=== PATIENT | female | born 2000 | race Caucasian/White ===

== ENCOUNTER 2019-12-02 18:46 | Emergency (ER) | payer OTHER ==
[~2019-12-02] VITALS: Ht 162.5 cm; Wt 63.5 kg
[2019-12-02] MEDS ORDERED: TETANUS,DIPTH,PERTUSS P/F (BOOSTRIX) 0.5 ML VIAL IM ONE (19:30)
--- NOTE | 2019-12-02 19:37 | ED Upper Extremity ---
General Chief Complaint: Upper Extremity Stated Complaint: R THUMB SWOLLEN History of Present Illness Date Seen by Provider: Dec 02, 2019 Time Seen by Provider: 19:20 Initial Comments 19-year-old female presents for right thumb swelling and abrasion. She works at [employer]. She was picking up a feeding and in the dark, the guard came off causing her to be in size by the blade. She had a small laceration and swelling and was referred here. She denies any previous histories of injuries to her right hand she is right-hand dominant. Unsure of her last tetanus immunization. Onset: just prior to arrival Pain/Injury Location: right thumb Method of Injury: incised Modifying Factors: Improves With Rest Allergies and Home Medications Allergies Coded Allergies: No Known Drug Allergies (Unverified , 12/02/19) Patient Home Medication List Home Medication List Reviewed: Yes Review of Systems Constitutional: no symptoms reported, see HPI : No Control/STD Prophylaxis: BC Patch Skin: see HPI, other (abrasion right thumb) All Other Systems Reviewed Negative Unless Noted: Yes Past Jqbsafl-Wzcaqm-Ktxtca Hx Past Med/Social Hx: Reviewed Nursing Past Med/Soc Hx Patient Social History Recent Foreign Travel: No Contact w/Someone Who Travel: No Physical Exam Vital Signs Vital Signs - First Documented 12/02/19 19:32 Temp 36.5 Pulse 76 Resp 16 B/P (MAP) 109/69 (82) Pulse Ox 100 O2 Delivery Room Air Capillary Refill : Height, Weight, BMI Height: '" Weight: lbs. oz. kg; BMI Method: General Appearance: WD/WN, no apparent distress Cardiovascular: normal peripheral pulses, regular rate, rhythm Respiratory: chest non-tender, lungs clear, normal breath sounds Hand: normal ROM, Right, laceration (abrasian at cuticle, no active bleeding, 1 cm), soft tissue tenderness Neurologic/Tendon: normal sensation, normal motor functions, normal tendon functions (flex/ext V/V) Neurologic/Psychiatric: no motor/sensory deficits, alert, normal mood/affect, oriented x 3 Skin: normal color, warm/dry Progress/Results/Core Measures Results/Orders My Orders Orders - NILSA OATESP Finger(S) (12/02/19 19:29) Dipht,Pertuss(Acell),Tet Adult (Boostrix (12/02/19 19:30) Medications Given in ED Current Medications Medications Dose Ordered Sig/Ignacio Route Start Time Stop Time Status Last Admin Dose Admin Diphtheria/ Tetanus/Acell Pertussis 0.5 ml ONCE ONCE IM 12/02/19 19:30 12/02/19 19:31 DC 12/02/19 20:03 0.5 ML Vital Signs/I&O 12/02/19 19:32 Temp 36.5 Pulse 76 Resp 16 B/P (MAP) 109/69 (82) Pulse Ox 100 O2 Delivery Room Air Diagnostic Imaging Diagonstic Imaging: Xray Plain Films/CT/US/NM/MRI: other (thumb) Comments NAME: OFELIA BOOKER [facility] REC#: [id number] PT STATUS: REG ER : 2000 PHYSICIAN: NILSA OATES ADMIT DATE: 12/02/19/ER Draft Date of Exam:12/02/19 FINGER(S) Right hand at 7:50 PM INDICATION: Injury, hand pain 4 views were obtained. COMPARISON: There are no prior studies available for comparison. FINDINGS: There is no fracture, dislocation or acute bony abnormality evident. In particular, there is no sign of an injury to the thumb. The soft tissues are unremarkable. There is no radiopaque foreign body identified. IMPRESSION: There is no evidence for an acute bony abnormality or for a radiopaque foreign body. Dictated on workstation # [id number] Dict: 12/02/191958 Trans: 12/02/192008 [facility] [id number] Interpreted by: AMARA JACOB MD Electronically signed by: Departure Impression Primary Impression: Abrasion of right thumb Qualified Codes: S60.311A - Abrasion of right thumb, initial encounter Additional Impression: Contusion of right thumb Qualified Codes: S60.011A - Contusion of right thumb without damage to nail, initial encounter Disposition: HOME, SELF-CARE Condition: Improved Departure-Patient Inst. Decision time for Depature: 19:00 Referrals: NO,LOCAL PHYSICIAN (PCP/Family) Primary Care Physician Patient Instructions: Skin Abrasions (DC) Add. Discharge Instructions: Clean wound to right thumb with peroxide and apply triple antibiotic ointment 3 times daily. Cover while at work. Ice to right thumb for 20 minutes every 2 hours as needed for swelling or pain. Alternate between Tylenol 650 mg and ibuprofen 600 mg every 4 hours for pain. Follow-up with your primary care provider if symptoms are not improving or worsen. Return to the emergency department for new, urgent health care needs. All discharge instructions reviewed with patient and/or family. Voiced understanding. NILSA OATES Dec 02, 2019 19:37
--- NOTE | 2019-12-02 20:09 | Diagnostic Imaging Report ---
Right hand at 7:50 PM INDICATION: Injury, hand pain 4 views were obtained. COMPARISON: There are no prior studies available for comparison. FINDINGS: There is no fracture, dislocation or acute bony abnormality evident. In particular, there is no sign of an injury to the thumb. The soft tissues are unremarkable. There is no radiopaque foreign body identified. IMPRESSION: There is no evidence for an acute bony abnormality or for a radiopaque foreign body. Dictated by: Dictated on workstation # [id number]
[2019-12-02 20:22] VITALS: BP 109/69
--- OUTSIDE RECORDS SUMMARY | 2019-12-02 21:05 | XMS REPORT ---
Author Author [facility] Medic al StaffOFELIA Organization [facility] Address [address] [place], [place] [address] Phone [phone] Care Team Providers Care Sewer Digger Name Role Phone NILSA MCELROY DO PP [phone] MCELROYNILSA VOSS DO PP [phone] Summary purpose CCDA Sent to [facility] Chief Complaint and Reason for Visit No authorized Reason for Visit (Admitting Diagnosis) is available for this visit . Problem list No authorized problems tracked for continuity of care are available for this vis it. Encounters No authorized problems tracked for encounter diagnoses are available for this vi sit. Medications No medications recorded for this patient visit Allergies, adverse reactions, alerts No allergy information is available for this patient. Immunizations No immunizations recorded for this patient visit Relevant diagnostic tests and/or laboratory data No authorized results are available for this patient visit History of procedures Procedure Code Code Type Description Date Performed Performing Physician 78580 CPT-4 PT EVAL LOW COMPLEX 20 MIN 07-14-2016 TORIBIO CHIQUI 35052 CPT-4 ELECTRIC CURRENT THERAPY 07-14-2016 B RAD CHIQUI 91009 CPT-4 THERAPEUTIC EXERCISES 07-15-2016 TORIBIO CHIQUI 98023 CPT-4 ELECTRIC CURRENT THERAPY 07-15-2016 B RAD CHIQUI 35688 CPT-4 THERAPEUTIC EXERCISES 07-20-2016 TORIBIO CHIQUI 24621 CPT-4 ELECTRIC CURRENT THERAPY 07-20-2016 B RAD CHIQUI 59064 CPT-4 THERAPEUTIC EXERCISES 07-22-2016 TORIBIO CHIQUI 47233 CPT-4 ELECTRIC CURRENT THERAPY 07-22-2016 B RAD CHIQUI 52021 CPT-4 THERAPEUTIC EXERCISES 07-27-2016 TORIBIO CHIQUI 16780 CPT-4 ELECTRIC CURRENT THERAPY 07-27-2016 B RAD CHIQUI Functional status No functional or cognitive status observations are available for this visit. Vital signs No authorized vital signs are available for this visit. Social history No Social History or smoking status observations were recorded for this visit. ( Unknown if ever smoked.) Treatment Plan No treatment plan text is available for this visit. Hospital discharge instructions No discharge instruction text is available for this visit.
--- OUTSIDE RECORDS SUMMARY | 2019-12-02 21:05 | XMS REPORT ---
Author Author [facility] Medic al StaffOFELIA Organization [facility] Address [address] [place], [place] [address] Phone [phone] Care Team Providers Care Utility Spray Operator Name Role Phone NILSA MCELROY DO PP [phone] Summary purpose CCDA Sent to [facility] Chief Complaint and Reason for Visit [...] for this patient visit History of procedures No procedures recorded for this patient visit. Functional status No functional or cognitive status [...]
--- OUTSIDE RECORDS SUMMARY | 2019-12-02 21:05 | XMS REPORT | Continuity of Care Document ---
Author Organization Unknown Address Unknown Phone Unavailable Allergies Active Description Code Type Severity Reaction Onset Reported/Identified Relationship to Patient Clinical Status Yes No Known Drug Allergies 35976881 N/A N/A Medications There is no data. Problems Date Dx Coded Attending Type Code Diagnosis Diagnosed By 12/29/2015 W H52.13 Matthias luis, bilateral 12/29/2015 W H52.223 Re gular astigmatism, bilateral 01/01/2016 W H52.13 Matthias luis, bilateral 01/01/2016 W H52.223 Re gular astigmatism, bilateral 03/07/2016 W H52.13 Matthias luis, bilateral 03/07/2016 W H52.223 Re gular astigmatism, bilateral 08/12/2016 CHIQUI GARCIA, TORIBIO R D M75. 21 Bicipital tendinitis, right shoulder 09/26/2016 F M19.011 Pr imary osteoarthritis, right shoulder 12/12/2016 CHIQUI GARCIA, TORIBIO R D M25. 511 Pain in right shoulder 01/12/2017 D M25.511 Pa in in right shoulder 02/13/2018 W 367.1 MYOPIA 02/13/2018 W 367.21 REG ULAR ASTIGMATISM 03/01/2018 Other V01.79 CONTACT OR EXPOSURE TO OTHER VIRAL DISEASES 01/23/2019 Other V01.79 CONTACT OR EXPOSURE TO OTHER VIRAL DISEASES Procedures Code [place] [address] EYE EXAM T TREATMENT 07/31/2013 02907 REFR ACTION 07/31/2013 89640 EYE EXAM T TREATMENT 12/14/2015 37551 REFR ACTION 12/14/2015 07389 ELEC TRIC CURRENT THERAPY TORIBIO FLORIAN MD 07/14/2016 48557 PT E CHRIS LOW COMPLEX 20 MIN TORIBIO FLORIAN MD R 07/14/2016 82122 ELEC TRIC CURRENT THERAPY TORIBIO FLORIAN MD 07/15/2016 28783 THER APEUTIC EXERCISES TORIBIO FLORIAN MD 07/15/2016 20003 ELEC TRIC CURRENT THERAPY TORIBIO FLORIAN MD 07/20/2016 16535 THER APEUTIC EXERCISES CHIQUI GARCIA, TORIBIO R 07/20/2016 42343 ELEC TRIC CURRENT THERAPY CHIQUI GARCIA, TORIBIO R 07/22/2016 19711 THER APEUTIC EXERCISES CHIQUI GARCIA, TORIBIO R 07/22/2016 05923 ELEC TRIC CURRENT THERAPY CHIQUI GARCIA, TORIBIO R 07/27/2016 78109 THER APEUTIC EXERCISES CHIQUI GARCIA, TORIBIO R 07/27/2016 90742 4V S hldr Adolph Cueva 09/26/2016 50729 THER APEUTIC EXERCISES CHIQUI GARCIA, TORIBIO R 11/28/2016 63140 PT E CHRIS LOW COMPLEX 20 MIN CHIQUI GARCIA, TORIBIO R 11/28/2016 30434 THER APEUTIC EXERCISES CHIQUI GARCIA, TORIBIO R 12/06/2016 33953 THER APEUTIC EXERCISES CHIQUI GARCIA, TORIBIO R 12/19/2016 Results There is no data. Encounters ACCT No. Visit Date/Time Discharge Status Pt. Type Provider Facility Loc./Unit Complaint [id number] 01/13/2017 00:01:00 7 00:02:00 DIS Outpatient CHIQUI GARCIA, [facility] PT [id number] 11/28/2016 16:07:00 7 23:59:59 CLS Outpatient CHIQUI GARCIA, [facility] PT [id number] 08/13/2016 00:01:00 7 10:39:00 DIS Outpatient CHIQUI GARCIA, [facility] PT [id number] 07/13/2016 15:51:00 7 23:59:59 CLS Outpatient CHIQUI GARCIA, [facility] PT [id number] 12/13/2016 00:01:00 Document Registration [id number] 10/17/2014 08:59:00 Document Registration [id number] 12/14/2015 09:30:00 Document Registration [id number] 07/31/2013 14:30:00 Document Registration [id number] 09/26/2016 00:00:00 Document Registration [id number] 04/03/2017 15:37:36 Document Registration
--- OUTSIDE RECORDS SUMMARY | 2019-12-02 21:05 | XMS REPORT ---
Author Author [facility] Medic al StaffOFELIA Organization [facility] Address [address] [place], [place] [address] Phone [phone] Care Team Providers Care Single Resource Boss Name Role Phone NILSA MCELROY DO PP [phone] Summary purpose CCDA Sent to [facility] Chief Complaint and Reason for Visit No [...] Code Type Description Date Performed Performing Physician 65562 CPT-4 THERAPEUTIC EXERCISES 12-19-2016 TORIBIO FLORIAN Functional status No functional or cognitive status [...]
--- OUTSIDE RECORDS SUMMARY | 2019-12-02 21:05 | XMS REPORT ---
Author Author Karol Oliveira [facility] eClinical[employer] Address Unknown Phone Unavailable Care Team Providers Care Metal Cans Supervisor Name Role Phone Ama Oliveira Unavailable Allergies No Known Allergies Problems Problem Type Condition Code Onset Dates Condition Statu s Problem General counseling and advice on contraceptive managem ent V25.09 Active Problem Evaluation for contraceptive injection V25.02 Active Problem Acne, Other Specified 706.1 Active Medications Medication Code System Code Instructions Start Date End Date Status Dosage Depo-Provera Contraceptive NDC 978 150 mg/mL intramuscularly onc e 150 mg Results No Known Results Summary Purpose eClinicalWorks Submission
--- OUTSIDE RECORDS SUMMARY | 2019-12-02 21:05 | XMS REPORT ---
Author Author [facility] Medic al StaffOFELIA Organization [facility] Address [address] [place], [place] [address] Phone [phone] Care Team Providers Care Autoglazier Name Role Phone NILSA MCELROY DO PP [phone] Summary purpose CCDA Sent to [facility] Chief Complaint and Reason for Visit No [...] Code Type Description Date Performed Performing Physician 44923 CPT-4 PT EVAL LOW COMPLEX 20 MIN 11-28-2016 TORIBIO FLORIAN 88205 CPT-4 THERAPEUTIC EXERCISES 11-28-2016 TORIBIO FLORIAN 17852 CPT-4 THERAPEUTIC EXERCISES 12-06-2016 TORIBIO FLORIAN Functional status No functional or [...]
--- OUTSIDE RECORDS SUMMARY | 2019-12-02 21:05 | XMS REPORT ---
Author Karol Singh Organization [employer] Address [address] [place] [address] Care Team Providers Care Chicken Vaccinator Name Role Phone Ama Oliveira Unavailable PROBLEMS Type Condition ICD9-CM Code TME64-BE Code Onset Dates Condition S tatus SNOMED Code Problem Right rotator cuff tendonitis M75.81 Active 158935783 Problem Acne, Other Specified 706.1 Active 25854881 Problem General counseling and advice on contraceptive management V25.09 Active 73575375 Problem Evaluation for contraceptive injection V25.02 Active 11880989 ALLERGIES No Information SOCIAL HISTORY Never Assessed PLAN OF CARE VITAL SIGNS MEDICATIONS Unknown Medications RESULTS No Results PROCEDURES No Known procedures IMMUNIZATIONS No Known Immunizations MEDICAL (GENERAL) HISTORY Type Description Date Medical History Do you take vitamins regularly? No Medical History Do you take OTC regularly? No Medical History Do you take Diet Supplements regularly? No Medical History Do you take any medications? No
--- OUTSIDE RECORDS SUMMARY | 2019-12-02 21:05 | XMS REPORT ---
Author Author [facility] Medic al StaffOFELIA Organization [facility] Address [address] [place], [place] [address] Phone [phone] Care Team Providers Care Wood Last Maker Name Role Phone NILSA MCELROY DO PP [phone] Summary purpose CCDA Sent to [facility] Chief Complaint and Reason for Visit [...]
--- OUTSIDE RECORDS SUMMARY | 2019-12-02 21:05 | XMS REPORT ---
Author Author Karol Oliveira Organization [employer] Address [address] [place] [address] Care Team Providers Care Uniform Force Captain Name Role Phone Ama Oliveira Unavailable PROBLEMS Type Condition ICD9-CM Code VRR35-QT Code Onset Dates Condition S tatus SNOMED Code Problem Right rotator cuff tendonitis M75.81 Active 653183882 Problem Acne, Other Specified 706.1 Active 71437910 Problem General counseling and advice on contraceptive management V25.09 Active 36423672 Problem Evaluation for contraceptive injection V25.02 Active 86539115 ALLERGIES Unknown Allergies SOCIAL HISTORY No smoking Hx information available PLAN OF CARE VITAL SIGNS MEDICATIONS Medication Instructions Dosage Frequency Start Date End Date Duration S tatus Depo-Provera Contraceptive 150 mg/mL intramuscularly once 150 mg 30 days Active RESULTS No Results PROCEDURES No Known procedures IMMUNIZATIONS No Known Immunizations
== END 2019-12-02 20:22 | disposition home or self-care (01) ==
LOC: ER 18:48
DX: S61.011A Laceration without foreign body of right thumb without damage to nail, initial encounter (principal); W26.8XXA Contact with other sharp object(s), not elsewhere classified, initial encounter; Y92.59 Other trade areas as the place of occurrence of the external cause; Y99.0 Civilian activity done for income or pay
CPT/HCPCS: 73140; 90715